=== PATIENT | female | born 1980 | race Caucasian/White ===

== ENCOUNTER 2023-05-05 14:30 | Emergency (ER) | payer OTHER, SELFPAY ==
[2023-05-05 14:33] VITALS: BP 123/93; PULSE 96; RESP 18; TEMP 36.8; O2SAT 97; BMI 24.6
--- NOTE | 2023-05-05 14:47 | XR_ITS ---
[facility] [id number] Patient Name: EFFIE YARBROUGH MRN: [id number] date: 1980 Sex: F Assigned Patient Location: ER Current Patient Location: ER Accession/Order Number: [id number] Exam Date: 05/05/2023 15:06 Report Date: 05/05/2023 15:23 At the request of: DENVER JANG Procedure: XR chest 1V ONE-VIEW CHEST RADIOGRAPH, 05/05/2023, 3:06 PM EST COMPARISON: None CLINICAL HISTORY: cough FINDINGS: No acute cardiopulmonary disease. No pulmonary edema, pneumothorax, or pleural effusion. Normal heart size. No acute osseous abnormality. XR/XR chest 1V IMPRESSION: No acute abnormality identified. Electronically authenticated by: Jennifer RICHARDS Date: 05/05/2023 15:23
--- NOTE | 2023-05-05 14:50 | ED_ITS ---
HPI - General Adult General Chief complaint: Upper Respiratory Infection Stated complaint: COUGH, GENERAL WEAKNESS Time Seen by Provider: 05/05/23 14:42 Source: patient Mode of arrival: walk-in History of Present Illness HPI narrative: Patient is a 42-year-old female who presents to the emergency department for upper respiratory symptoms. She states that she has been sleeping outside prior to her arrival at [facility] and has had chest congestion for the last month. For the last 3 days she has felt very fatigued, drowsy. No objective fevers, vomiting. She states she has been on an antibiotic for the last 4 to 5 days for tooth infection. She is unsure of a possibility of . She reports nasal congestion, chest congestion, decreased appetite, fatigue and bodyaches. Patient was tested negative twice at [facility] for COVID. Related Data Previous Rx's Medication Instructions Recorded tbxqxbkavzkddaa-quqsrdjjzxshegn-OR 10 ml PO Q6H PRN cold symptoms 05/05/23 2 mg-30 mg-10 mg/5 mL oral syrup #200 mL (Bromfed DM) ondansetron 4 mg disintegrating 4 mg PO Q6H PRN nausea and 05/05/23 tablet vomiting #12 tabs Allergies Allergy/AdvReac Type Severity Reaction Status Date / Time No Known Drug Allergies Allergy Verified 05/05/23 14:38 Review of Systems ROS Constitutional Reports: chills, fatigue and malaise; Denies: fever Ears, nose, mouth, and throat Reports: nasal congestion; Denies: throat pain Cardiovascular Denies: chest pain Respiratory Reports: cough; Denies: shortness of breath Gastrointestinal Denies: nausea or vomiting Musculoskeletal Denies: back pain Integumentary/Breast Denies: rash Neurological Denies: headache Hematologic/Lymphatic Denies: easy bruising Exam Narrative Exam Narrative: Gen.: Awake, alert, in no distress Head: Normocephalic, atraumatic ENT: Moist mucous membranes; No dental abscess noted with generalized poor dentition and multiple dental caries. Bilateral TMs clear. Mild tonsillar edema that is symmetric with no exudate. Uvula midline. Airway widely open and patent. Respiratory: No respiratory distress, lungs clear bilaterally Cardio: Regular rate and rhythm Extremities: Moves extremities equally Psych: Normal mood and affect Neuro: No focal neuro deficit Skin: Warm, dry, intact Constitutional Vital Signs, click to edit/add: Last Vital Signs Temp 98.3 F 05/05/23 14:33 Pulse 96 H 05/05/23 14:33 Resp 18 05/05/23 14:33 BP 123/93 H 05/05/23 14:33 Pulse Ox 97 05/05/23 14:33 O2 Del Method Room Air 05/05/23 14:33 Course Vital Signs Vital signs: Vital Signs Temperature 98.3 F 05/05/23 14:33 Pulse Rate 96 H 05/05/23 14:33 Respiratory Rate 18 05/05/23 14:33 Blood Pressure 123/93 H 05/05/23 14:33 Pulse Oximetry 97 05/05/23 14:33 Oxygen Delivery Method Room Air 05/05/23 14:33 Temperature 98.3 F 05/05/23 14:33 Pulse Rate 96 H 05/05/23 14:33 Respiratory Rate 18 05/05/23 14:33 Blood Pressure 123/93 H 05/05/23 14:33 Pulse Oximetry 97 05/05/23 14:33 Oxygen Delivery Method Room Air 05/05/23 14:33 Medical Decision Making MDM Narrative Medical decision making narrative: Patient with low TSH, encouraged to follow-up with regular primary care for further thyroid testing. She has otherwise unremarkable labs and chest x-ray. She was found to be positive for influenza A which likely accounts for all of her symptoms. Follow-up with PCP, Bromfed-DM and Zofran given for home, return to the ER if symptoms change or worsen. Stable vital signs at discharge. Medical Records Medical records reviewed: Yes I reviewed the patient's medical records Lab Data Lab results reviewed: Yes I reviewed the patient's lab results Labs: Lab Results 05/05/23 05/05/23 Range/Units 14:40 15:01 WBC 3.2 L (4.0-11.0) 10^3/uL RBC 4.06 L (4.20-5.40) 10^6/uL Hgb 11.6 L (12.0-16.0) g/dL Hct 35.4 L (36.0-48.0) % MCV 87.2 (81.0-99.0) fL MCH 28.6 (26.7-34.0) pg MCHC 32.8 (29.9-35.2) g/dL RDW 14.0 (11.0-15.0) % Plt Count 199 (150-450) 10^3/uL MPV 9.3 L (9.5-13.5) fL Neut % (Auto) 57.5 (43.0-75.0) % Lymph % (Auto) 25.0 (20.5-60.0) % [place] % (Auto) 16.0 H (1.7-12.0) % Eos % (Auto) 0.9 (0.9-7.0) % Baso % (Auto) 0.3 (0.2-2.0) % Neut # (Auto) 1.9 (1.4-6.5) 10^3/uL Lymph # (Auto) 0.8 L (1.2-3.8) 10^3/uL [place] # (Auto) 0.5 (0.3-0.8) 10^3/uL Eos # (Auto) 0.0 (0.0-0.7) 10^3/uL Baso # (Auto) 0.0 (0.0-0.1) 10^3/uL Abs Immat Gran (auto) 0.01 (0.00-0.03) 10^3/uL Imm/Tot Granulo (auto) 0.3 (0.0-0.5) % Sodium 135 L (136-145) mmol/L Potassium 3.9 (3.5-5.1) mmol/L Chloride 103 (98-107) mmol/L Carbon Dioxide 29.2 (21.0-32.0) mmol/L Anion Gap 6.7 BUN 13.0 (7.0-18.0) mg/dL Creatinine 0.86 (0.55-1.02) mg/dL Est GFR ( Amer) >60 (>=60) Est GFR (Non-Af Amer) >60 (>=60) BUN/Creatinine Ratio 15.1 Glucose 87 (74-106) mg/dL Calcium 8.5 (8.5-10.1) mg/dL Total Bilirubin 0.2 (0.2-1.0) mg/dL AST 17 (15-37) U/L ALT 37 (14-59) U/L Alkaline Phosphatase 75 (46-116) U/L Total Protein 7.2 (6.4-8.2) g/dL Albumin 3.3 L (3.4-5.0) g/dL Globulin 3.9 g/dL Albumin/Globulin Ratio 0.8 TSH 0.137 L (0.358-3.740) uIU/mL Serum HCG, Qual Negative (NEGATIVE) Monoscreen Negative (NEGATIVE) Influenza Type A Ag Positive A Influenza Type B Ag Negative Imaging Data Chest x-ray: Attestation: I have reviewed the pertinent imaging results. Radiologist's impression: ITS Impressions Chest X-Ray 05/05/23 14:47 IMPRESSION: No acute abnormality identified. Electronically authenticated by: Jennifer RICHARDS Date: 05/05/2023 15:23 Discharge Plan Discharge Chief Complaint: Upper Respiratory Infection Clinical Impression: Upper respiratory infection, Low TSH level, Influenza Patient Disposition: Home, Self-Care Time of Disposition Decision: 15:34 Condition: Good Prescriptions / Home Meds: New iioxdplsrtibmqf-qgswjwbyz-ES [Bromfed DM] 2-30-10 mg/5 mL syrup 10 ml PO Q6H PRN (Reason: cold symptoms) Qty: 200 0RF ondansetron 4 mg tablet,disintegrating 4 mg PO Q6H PRN (Reason: nausea and vomiting) Qty: 12 0RF Instructions: Influenza (ED) Stand Alone Forms: Portal Instructions Referrals: ANDRES CERDA [Primary Care Provider] - 1 week
[2023-05-05 15:08] LABS: Basophils Percent Auto 0.3 % (0.2-2.0); Eosinophils Percent Auto 0.9 % (0.9-7.0); Hematocrit 35.4 % (36.0-48.0); Hemoglobin 11.6 g/dL (12.0-16.0); Immature Granulocytes Abs Auto 0.01 10^3/uL (0.00-0.03); Immature Granulocytes Pct Auto 0.3 % (0.0-0.5); Lymphocytes Absolute Auto 0.8 10^3/uL (1.2-3.8); Mean Corpuscular HGB Conc 32.8 g/dL (29.9-35.2); Mean Corpuscular Hemoglobin 28.6 pg (26.7-34.0); Mean Corpuscular Volume 87.2 fL (81.0-99.0); Mean Platelet Volume 9.3 fL (9.5-13.5); Monocytes Absolute Auto 0.5 10^3/uL (0.3-0.8); Neutrophils Absolute Auto 1.9 10^3/uL (1.4-6.5); Neutrophils Percent Auto 57.5 % (43.0-75.0); Platelet Count 199 10^3/uL (150-450); Red Blood Count 4.06 10^6/uL (4.20-5.40); White Blood Count 3.2 10^3/uL (4.0-11.0)
[2023-05-05 15:11] LABS: Influenza Virus A Antigen Positive; Influenza Virus B Antigen Negative; Internal Control Within Normal Limits
[2023-05-05 15:21] LABS: HCG Qualitative NEGATIVE (NEGATIVE); Mono Screen NEGATIVE (NEGATIVE)
[2023-05-05 15:23] LABS: Alanine Aminotransferase 37 U/L (14-59); Albumin Globulin Ratio 0.8; Albumin Level 3.3 g/dL (3.4-5.0); Alkaline Phosphatase 75 U/L (46-116); Anion Gap 6.7; Aspartate Amino Transferase 17 U/L (15-37); BUN Creatinine Ratio 15.1; Bilirubin Total 0.2 mg/dL (0.2-1.0); Calcium 8.5 mg/dL (8.5-10.1); Carbon Dioxide 29.2 mmol/L (21.0-32.0); Chloride 103 mmol/L (98-107); Estimated GFR (African America >60 (>=60); Estimated GFR (Non-African Ame >60 (>=60); Globulin 3.9 g/dL; Glucose 87 mg/dL (74-106); Potassium 3.9 mmol/L (3.5-5.1); Sodium 135 mmol/L (136-145); Total Protein 7.2 g/dL (6.4-8.2)
[2023-05-05 15:31] LABS: Thyroid Stimulating Hormone 0.137 uIU/mL (0.358-3.740)
== END 2023-05-05 15:42 | disposition home or self-care (01) ==
PROVIDERS: Physician Assistant; Emergency Provider Emergency Medicine; PCP Family Medicine
DX: J10.1 Influenza due to other identified influenza virus with other respiratory manifestations (principal); R94.6 Abnormal results of thyroid function studies
CPT/HCPCS: 36415; 71045; 80053; 84443; 84703; 85025; 86308; 87804; 99285